=== PATIENT | male | born 1960 ===

== ENCOUNTER 2024-03-31 15:53 | Outpatient (CLI) | payer BC, SELFPAY ==
--- NOTE | 2024-03-31 15:25 | DI.RAD_ITS ---
Exam(s) XR KNEE LT 4V AP,LAT,AILYN,PAT EXAM: XR KNEE LT 4V AP,LAT,AILYN,PAT CLINICAL HISTORY: eval continued pain L TKA. TECHNIQUE: 2D digital imaging was performed. Three views. COMPARISON: CR XR KNEE 3 VIEW LEFT from 11/19/2014 FINDINGS: BONES: No acute fracture is present. And compared with the prior exam, there is now on abnormal davin ency noted adjacent to the femoral component of the prosthesis. There is also question of lucency at adjacent to the patellar component of the prosthesis. Lucency adjacent to the tibial component of t he prosthesis appears stable. JOINTS: The knee is normally aligned. No joint effusion is seen. SOFT TISSUE: Vasculatures heavily calcified. Circumscribed ovoid calcification again noted in the unger prapatellar region. IMPRESSION: Lucencies adjacent to the femoral component of the prosthesis are suspicious for loosening. Findings at the patella and proximal tibia are equivocal. DATA REPOSITORY: RADIATION DOSE DELIVERED:
== END 2024-03-31 15:54 | disposition home or self-care (01) ==
LOC: DIORS 15:53
PROVIDERS: PCP Family Medicine; Referring Provider Family Medicine; Visit Provider Student in an Organized Health Care Education/Training Program
DX: T84.84XA Pain due to internal orthopedic prosthetic devices, implants and grafts, initial encounter (principal); Z96.652 Presence of left artificial knee joint
CPT/HCPCS: 73564

== ENCOUNTER 2024-10-15 02:02 | Outpatient (CLI) | payer BC, SELFPAY ==
--- NOTE | 2024-10-15 06:45 | DI.CT_ITS ---
Exam(s) CT LOWER EXTREMITY LT WO EXAM: CT LOWER EXTREMITY LT WO CLINICAL HISTORY: ? LOOSENING LTKA, painful total knee replacement,t84.84xa,t84.033a,z96.652. TECHNIQUE: Imaging Protocol: Axial computed tomography images with coronal and sagittal reformatted images were created and reviewed. CONTRAST MATERIAL: Noncontrast COMPARISON: CR XR KNEE LT 4V AP,LAT,AILYN,PAT from 03/31/2024 FINDINGS: Bones: There is no evidence of fracture or dislocation. There is lucency seen beneath the tibial component of the prosthesis is well as of a cystic area seen in the medial tibial plateau. There is lucency adjacent to the patellar component of the prosthesis. Abnormal lucency is visible adjacent to the posterior aspect of the femoral component of the prosthesis. There is also a medial cystic area. Joints: Total knee prosthesis. There is calcification of the synovium in the suprapatellar region. Soft Tissues: Normal. Vascular calcifications. 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 Cyst formation in the medial femoral condyle read medial tibial plateau. Calcified synovium. Findings could indicate particle disease. RADIATION DOSE DELIVERED: 161.71mGy.cm Total DLP DATA REPOSITORY: All CT scans at this facility are submitted to the National Radiology Data Registry (NRDR) Dose Index Registry (DIR) with the [employer] ([employer]). RADIATION OPTIMIZATION: All CT scans at this facility use at least one of these dose optimization techniques: automated exposure control; mA and/or kV adjustment per patient size (includes targeted exams where dose is matched to clinical indication); or iterative reconstruction.
--- NOTE | 2024-10-15 06:45 | DI.NM_ITS ---
Exam(s) NM BONE SCAN 3 PHASE EXAM: NM BONE SCAN 3 PHASE CLINICAL HISTORY: ? LOOSENING LTKR,painful total knee prosthetic joint,t84.033a. TECHNIQUE: Injected Dose: 25 mCi Tc-99m MDP COMPARISON: CR XR KNEE 3 VIEW LEFT from 11/19/2014 CR XR KNEE LT 4V AP,LAT,AILYN,PAT from 03/31/[address] LOWER EXTREMITY LT WO from 10/15/2024 FINDINGS: Perfusion: Symmetric mild hyperemia to the left knee. Blood Pool: Symmetric mildly increased activity around the left knee. Delayed: Significantly increased activity around the tibial, patellar and femoral components of the prosthesis, consistent with loosening. Infection not entirely excluded. IMPRESSION: 1. Abnormal uptake around the components of the total knee prosthesis, consistent with loosening. DATA REPOSITORY:
== END 2024-10-15 02:22 ==
LOC: DI 02:03
PROVIDERS: PCP Family Medicine; Visit Provider Student in an Organized Health Care Education/Training Program
DX: T84.033A Mechanical loosening of internal left knee prosthetic joint, initial encounter (principal); T84.84XA Pain due to internal orthopedic prosthetic devices, implants and grafts, initial encounter; Z96.652 Presence of left artificial knee joint
CPT/HCPCS: 73700; 78315

== ENCOUNTER 2024-10-15 02:59 | Outpatient (CLI) | payer BC, SELFPAY ==
[2024-10-15 07:21] LABS: ESR 6 mm/hr (0-20)
[2024-10-15 07:42] LABS: C-Reactive Protein < 0.50 mg/dL (<or=0.5)
== END 2024-10-15 03:00 | disposition home or self-care (01) ==
LOC: LBO 03:00
PROVIDERS: PCP Family Medicine; Visit Provider Student in an Organized Health Care Education/Training Program
DX: T84.033A Mechanical loosening of internal left knee prosthetic joint, initial encounter (principal); T84.84XA Pain due to internal orthopedic prosthetic devices, implants and grafts, initial encounter; Z96.652 Presence of left artificial knee joint
CPT/HCPCS: 36415; 85652; 86140